=== PATIENT | female | born 1965 | race Caucasian/White ===

== ENCOUNTER 2018-01-10 13:20 | Observation (INO) | payer BC ==
[2018-01-10] MEDS ORDERED: IPRATROPIUM BROM 0.5MG/2.5ML ONE (13:55)
[2018-01-10] MEDS ORDERED: ALBUTEROL 2.5 MG/3 ML NEB SOL ONE (13:55)
[2018-01-10] MEDS ORDERED: DEXAMETHASONE 10 MG/ML VIAL ONE (13:56)
[2018-01-10 14:26] LABS: Absolute Lymphocytes (CBC) 0.8 K/uL (0.7-4.9); Absolute Monocytes 0.6 K/uL (0.1-1.3); Absolute Neutrophil 2.4 K/uL (1.8-8.0); Basophils % 0.6 % (0-1.3); Eosinophils % 0.9 % (0-4.4); Hematocrit 40.3 % (36.0-45.0); Lymphocytes % 21.7 % (15.3-44.8); MCH 28.8 pg (27.0-35.0); MCV 85.8 fL (80-100); MPV 10.4 fL (7.6-11.3); Monocytes % 15.1 % (3.3-12.3)
--- NOTE | 2018-01-10 14:33 | RAD REPORT ---
EXAM DESCRIPTION: RAD - Chest Single View - 01/10/2018 2:05 pm CLINICAL HISTORY: Cough, chest tightness COMPARISON: November 2012 TECHNIQUE: AP portable chest image was obtained 1400 hours . FINDINGS: Low lung volumes are noted. This accentuates interstitial markings. Focal consolidation, m ass or failure not suspected. Trachea is midline. Heart and vasculature are normal. No measurable ple ural effusion and no pneumothorax. No gross bony abnormality seen. No acute aortic findings suspected . IMPRESSION: Shallow inspiration chest film not significantly different from comparison. No acute fin ding confirmed.
[2018-01-10 14:45] LABS: Urine Blood 1+ (NEG); Urine Glucose NEGATIVE (NEG); Urine Protein 1+ (NEG); Urine Specific Gravity >1.030 (1.005-1.030)
--- NOTE | 2018-01-10 14:45 | EKG ---
Test Date: 2018-01-10 Test Time: 13:29:44 Chief Of Internal Medicine: FRANK MEASUREMENT RESULTS: Intervals: Rate: 84 VT: 140 QRSD: 88 QT: 360 QTc: 425 [place]: P: 28 VT: 140 QRS: 37 T: 23 INTERPRETIVE STATEMENTS: Normal sinus rhythm Normal ECG No previous ECG available for comparison Electronically Signed On 01-10-18 14:44:52 CDT by Abelino Cardoso
[2018-01-10 14:46] LABS: Albumin 3.4 g/dL (3.4-5.0); Bilirubin Total 0.3 mg/dL (0.2-1.0); Lipase 64 U/L (73-393); NT PRO-BNP 44 pg/mL (<125); Potassium 3.6 mmol/L (3.5-5.1); Protein, Total 7.5 g/dL (6.4-8.2)
--- NOTE | 2018-01-10 15:23 | RAD REPORT ---
EXAM DESCRIPTION: CT - Chest For Pe Angio - 01/10/2018 3:11 pm CLINICAL HISTORY: Shortness of breath, elevated D-dimer COMPARISON: January 10 chest film TECHNIQUE: Dynamically enhanced 3 mm thick images of the chest were obtained during administration o f approximately 150mL Isovue 370 IV contrast. Coronal and oblique reconstruction images were generate d and reviewed. Exam utilizes a protocol to evaluate the pulmonary arterial tree. All CT scans are performed using dose optimization technique as appropriate and may include automated exposure control or mA/KV adjustment according to patient size. FINDINGS: No pulmonary emboli are identified. The aorta as imaged shows no acute or suspicious finding. No pericardial thickening or effusion. No focal infiltrate, mass or consolidation. Interstitial markings are mildly prominent and could be a mild interstitial edema or infiltrate. No pleural effusion or pleural thickening. No mediastinal or hilar suspicious masses. No chest wall masses or abnormal axillary lymphadenopathy. No cardiomegaly or pericardial effusion. Bilateral breast implants are in place. There is calcificat ion of the implant capsules. IMPRESSION: No pulmonary emboli identified. Prominent interstitial markings from edema or infiltrate. No mass or consolidation of the parenchyma.
--- NOTE | 2018-01-10 15:32 | ER ---
Nurse's Notes [facility] Name: Pat John Age: 52 yrs Sex: Female : 1965 Arrival Date: 01/10/2018 Time: 13:23 Bed 28 Private MD: Hosea Moses Diagnosis: Chest pain, unspecified;Fever, unspecified;Hypoxemia;Weakness;Cough Presentation: 01/10 13:30 Presenting complaint: Patient states: Reports tightness across chest and cough since aj this AM. Patient reports that she just hasn't been feeling well for past 2 days. Reports coughing when attempting to take deep breath. NAD in triage. Transition of care: patient was not received from another setting of care. Onset of symptoms was January 10, 2018. Risk Assessment: Do you want to hurt yourself or someone else? Patient reports no desire to harm self or others. Initial Sepsis Screen: Does the patient meet any 2 criteria? No. Patient's initial sepsis screen is negative. Does the patient have a suspected source of infection? No. Patient's initial sepsis screen is negative. Care prior to arrival: None. 13:30 Method Of Arrival: Ambulatory 13:30 Acuity: GONZÁLEZ 3 Triage Assessment: 13:33 General: Appears in no apparent distress. comfortable, Behavior is calm, cooperative, aj appropriate for age. Pain: Denies pain. Neuro: Level of Consciousness is awake, alert, obeys commands, Oriented to person, place, time, situation, Appropriate for age. Cardiovascular: Reports shortness of breath, Capillary refill < 3 seconds in bilateral fingers Patient's skin is warm and dry. Respiratory: Reports shortness of breath cough that is Airway is patent Respiratory effort is even, unlabored, Respiratory pattern is regular, symmetrical. Derm: Skin is intact, is healthy with good turgor, Skin is pink, warm \\T\\ dry. normal. 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 - Social history:: Smoking status: Patient/guardian denies using tobacco. - Ebola Screening: : Patient negative for fever greater than or equal to 101.5 degrees Fahrenheit, and additional compatible Ebola Virus Disease symptoms Patient denies exposure to infectious person Patient denies travel to an Ebola-affected area in the 21 days before illness onset No symptoms or risks identified at this time. Screenin:50 Fall Risk None identified. kr2 14:20 Abuse screen: Denies threats or abuse. Denies injuries from another. Nutritional kr2 screening: No deficits noted. Tuberculosis screening: No symptoms or risk factors identified. Assessment: 13:50 Pain: Pain began gradually. kr2 13:50 General: Appears in no apparent distress. uncomfortable, well groomed, well developed, kr2 well nourished, Behavior is calm, cooperative, appropriate for age. Pain: Complains of pain in anterior aspect of right upper chest, anterior aspect of left upper chest and mid-sternal area Pain does not radiate. Pain currently is 4 out of 10 on a pain scale. at worst was 8 out of 10 on a pain scale. Quality of pain is described as "Tightness" Is continuous, Alleviated by sitting up Aggravated by lying flat. Neuro: Level of Consciousness is awake, alert, obeys commands, Oriented to person, place, time, situation. Cardiovascular: Capillary refill < 3 seconds in bilateral fingers Patient's skin is warm and dry. Rhythm is sinus rhythm. Respiratory: Airway is patent Respiratory effort is even, unlabored, Respiratory pattern is regular, symmetrical, Breath sounds are clear bilaterally. GI: Abdomen is non-distended, obese. : Urine is clear,kamini. EENT: Nares are clear bilaterally Oral mucosa is moist. Derm: Skin is intact, is healthy with good turgor, Skin is pink, warm \\T\\ dry. Musculoskeletal: Circulation, motion, and sensation intact. 14:50 Reassessment: Patient appears in no apparent distress at this time. Patient and/or kr2 family updated on plan of care and expected duration. Pain level reassessed. Patient is alert, oriented x 3, equal unlabored respirations, skin warm/dry/pink. 16:00 Reassessment: Patient ambulated around pod per MD instruction with pulse ox on, kr2 saturation dropped to 89% on room air, no shortness of breath. After return to bed and rest saturation up to 97%. 16:34 Reassessment: Discharge on hold at this time. kr2 17:35 Reassessment: Patient appears in no apparent distress at this time. Patient and/or kr2 family updated on plan of care and expected duration. Pain level reassessed. Patient is alert, oriented x 3, equal unlabored respirations, skin warm/dry/pink. Patient relaxed and laughing at this time, talking with friend at bedside. 17:38 Reassessment: Antibiotics on hold until second set of blood cultures drawn. kr2 18:22 Reassessment: Patient appears in no apparent distress at this time. Patient and/or kr2 family updated on plan of care and expected duration. Pain level reassessed. Patient is alert, oriented x 3, equal unlabored respirations, skin warm/dry/pink. Patient provided meal tray. Denies having any other needs at this time. 18:33 Reassessment: Patient appears in no apparent distress at this time. Patient and/or kr2 family updated on plan of care and expected duration. Pain level reassessed. Patient is alert, oriented x 3, equal unlabored respirations, skin warm/dry/pink. Patient states feeling better. 19:30 Reassessment: Patient appears in no apparent distress at this time. Patient and/or kr2 family updated on plan of care and expected duration. Pain level reassessed. Patient is alert, oriented x 3, equal unlabored respirations, skin warm/dry/pink. Patient states feeling better. 20:30 Reassessment: Patient appears in no apparent distress at this time. Patient and/or kr2 family updated on plan of care and expected duration. Pain level reassessed. Patient is alert, oriented x 3, equal unlabored respirations, skin warm/dry/pink. Patient states feeling better. Vital Signs: 13:33 BP 144 / 81; Pulse 94; Resp 19; Temp 99.2; Pulse Ox 97% on R/A; Weight 127.01 kg; aj Height 5 ft. 9 in. (175.26 cm); 14:33 BP 131 / 52; Pulse 103; Resp 23; Pulse Ox 95% on R/A; kr2 16:30 BP 161 / 87; Pulse 93; Resp 18; Pulse Ox 98% on R/A; kr2 17:36 BP 108 / 52; Pulse 89; Resp 17; Pulse Ox 98% on R/A; kr2 18:51 BP 142 / 81; Pulse 100; Resp 17; Temp 99.8(O); Pulse Ox 95% on 2 lpm NC; kr2 20:00 BP 136 / 78; Pulse 101; Resp 20; Temp 99.5(O); Pulse Ox 97% on 2 lpm NC; kr2 13:33 Body Mass Index 41.35 (127.01 kg, 175.26 cm) aj 14:33 post neb treatment kr2 Vitals: 14:33 Cardiac Rhythm Assessment Sinus tach. kr2 ED Course: 13:23 Patient arrived in ED. sb2 13:24 Hosea Moses MD is Private Physician. sb2 13:28 Fish Dixon MD is Attending Physician. ps1 13:31 Triage completed. aj 13:32 EKG done, by electrical instrumentation technician. reviewed by Fish Dixon MD. at1 13:33 Arm band placed on right wrist. Patient placed in an exam room. EKG completed in aj triage. Results shown to MD. 13:45 Marianne Dickens, RN is Primary Nurse. kr2 13:50 Patient has correct armband on for positive identification. Bed in low position. Call kr2 light in reach. Side rails up X 1. monitoring coordinator on. Pulse ox on. NIBP on. Door closed. Warm blanket given. Head of bed elevated. 13:55 Initial Neb Treatment Given as ordered Patient was instructed and evaluated on kr2 procedure. 14:02 X-ray completed. Portable x-ray completed in exam room. Patient tolerated procedure ml well. 14:05 XRAY CXR (1 view) In Process Unspecified. EDMS 14:05 Inserted saline lock: 20 gauge in left antecubital area, using aseptic technique. Blood kr2 collected. Patient maintains SpO2 saturation greater than 95% on room air. 14:05 Urine collected: clean catch specimen, clear, kamini colored. kr2 15:[address] via wheelchair. vm2 15:10 CT completed. Patient tolerated procedure well. Patient moved back from CT. vm2 15:11 CT Chest For PE Angio In Process Unspecified. EDMS 15:31 Hosea Moses MD is Referral Physician. ps1 16:39 Attending Physician role handed off by Fish Dixon MD adeel 16:39 Gianfranco Arambula MD is Attending Physician. adeel 16:46 Sheila Garcia MD is Hospitalizing Provider. adeel 21:00 No provider procedures requiring assistance completed. Patient admitted, IV remains in kr2 place. Administered Medications: 13:55 Drug: DuoNeb (3:1) (2.5 mg - 0.5 mg) 3 ml Route: Nebulizer; kr2 14:40 Follow up: Response: No adverse reaction kr2 14:00 Drug: Decadron 10 mg Route: PO; kr2 14:40 Follow up: Response: No adverse reaction kr2 16:46 CANCELLED (Duplicate Order): levofloxacin 500 mg 100 ml IVPB once over 60 mins adeel 17:06 Drug: Aspirin 162 mg Route: PO; kr2 19:17 Follow up: Response: No adverse reaction kr2 17:54 Drug: levofloxacin 750 mg Volume: 150 ml; Route: IVPB; Infused Over: 90 mins; Site: kr2 left antecubital; 19:17 Follow up: Response: No adverse reaction; IV Status: Completed infusion kr2 18:28 Drug: Lovenox 100 mg Route: Sub-Q; Site: right lower abdomen; kr2 19:17 Follow up: Response: No adverse reaction kr2 Outcome: 15:32 Discharge ordered by . ps1 16:49 Decision to Hospitalize by Provider. adeel 20:50 Admitted to Tele accompanied by tech, via wheelchair, room 418, with oxygen, with kr2 chart, Report called to Roxana 20:50 Condition: stable 20:50 Instructed on the need for admit, Demonstrated understanding of instructions. 21:01 Patient left the ED. kr2 Signatures: Dispatcher [employer] EDErica Sierra RN RN aj Anderson, Corey, MD MD cha Lopez, Melissa ml gonzales, Amanda, inker EKG Tat1 Nancy Mayanrd vm2 Marianne Dickens RN RN kr2 Fish Dixon MD MD ps1 Billeau, Sheri sb2 Corrections: (The following items were deleted from the chart) 14:33 14:21 Pain: Pain began kr2 kr2 16:37 14:33 Pulse 103bpm; Resp 23bpm; Pulse Ox 95% RA; post neb treatment; kr2 kr2 18:55 18:51 BP 142 / 81; Pulse 100bpm; Resp 17bpm; Pulse Ox 95% 2 lpm Nasal Cannula; kr2 kr2
--- NOTE | 2018-01-10 15:32 | EDPHYS ---
Physician Documentation [facility] Name: Pat John Age: 52 yrs Sex: Female : 1965 Arrival Date: 01/10/2018 Time: 13:23 Bed 28 Private MD: Hosea Moses ED Physician Gianfranco Arambula HPI: 01/10 13:36 This 52 yrs old Female presents to ER via Ambulatory with complaints of Chest ps1 Tightness, Breathing Difficulty. 13:36 onset was over a week ago. Intermittent fever and difficulty breathing with deep ps1 inspiration. States the pain feels like muscle strain and pain into the right shoulder. Pain rated as moderate. No DVT symptoms. . 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 - Social history:: Smoking status: Patient/guardian denies using tobacco. - Ebola Screening: : Patient negative for fever greater than or equal to 101.5 degrees Fahrenheit, and additional compatible Ebola Virus Disease symptoms Patient denies exposure to infectious person Patient denies travel to an Ebola-affected area in the 21 days before illness onset No symptoms or risks identified at this time. ROS: 13:36 Constitutional: Negative for fever, chills, and weight loss, Eyes: Negative for injury, ps1 pain, redness, and discharge, Cardiovascular: Negative for chest pain, palpitations, and edema, Abdomen/GI: Negative for abdominal pain, nausea, vomiting, diarrhea, and constipation, Back: Negative for injury and pain, MS/Extremity: Negative for injury and deformity, Skin: Negative for injury, rash, and discoloration, Neuro: Negative for headache, weakness, numbness, tingling, and seizure. 13:36 Respiratory: Positive for cough, pleurisy, shortness of breath. Exam: 13:36 Constitutional: This is a well developed, well nourished patient who is awake, alert, ps1 and in no acute distress. Head/Face: Normocephalic, atraumatic. Eyes: Pupils equal round and reactive to light, extra-ocular motions intact. Lids and lashes normal. Conjunctiva and sclera are non-icteric and not injected. Chest/axilla: Normal chest wall appearance and motion. Nontender with no deformity. No lesions are appreciated. Cardiovascular: Regular rate and rhythm. No gallops, murmurs, or rubs. Normal PMI, no JVD. No pulse deficits. Respiratory: Lungs have equal breath sounds bilaterally, clear to auscultation and percussion. No rales, rhonchi or wheezes noted. No increased work of breathing, no retractions or nasal flaring. Abdomen/GI: Soft, non-tender, with normal bowel sounds. No distension or tympany. No guarding or rebound. No evidence of tenderness throughout. Skin: Warm, dry with normal turgor. Normal color with no rashes, no lesions, and no evidence of cellulitis. MS/ Extremity: Pulses equal, no cyanosis. Neurovascular intact. Full, normal range of motion. Neuro: Awake and alert, GCS 15, oriented to person, place, time, and situation. Cranial nerves II-XII grossly intact. Sensory grossly intact. Vital Signs: 13:33 BP 144 / 81; Pulse 94; Resp 19; Temp 99.2; Pulse Ox 97% on R/A; Weight 127.01 kg; aj Height 5 ft. 9 in. (175.26 cm); 14:33 BP 131 / 52; Pulse 103; Resp 23; Pulse Ox 95% on R/A; kr2 16:30 BP 161 / 87; Pulse 93; Resp 18; Pulse Ox 98% on R/A; kr2 17:36 BP 108 / 52; Pulse 89; Resp 17; Pulse Ox 98% on R/A; kr2 18:51 BP 142 / 81; Pulse 100; Resp 17; Temp 99.8(O); Pulse Ox 95% on 2 lpm NC; kr2 20:00 BP 136 / 78; Pulse 101; Resp 20; Temp 99.5(O); Pulse Ox 97% on 2 lpm NC; kr2 13:33 Body Mass Index 41.35 (127.01 kg, 175.26 cm) aj 14:33 post neb treatment kr2 MDM: 14:48 Patient medically screened. [facility] 16:07 Data reviewed: vital signs, nurses notes, lab test result(s), EKG, radiologic studies, ps1 CT scan. ED course: bedside US of gallbladder performed. No pericholecystic fluid. No stones, or GB wall thickening. CBD wnl. No signs of GB disease. During examination patients family member was making statements concerning trust of my workup and her presenting symptoms. She additionally was seen by Dr. Alexa ZHENG and this was not verbalized to me previously. She now has multiple complaints that were not addressed previously. I had patient perform an ambulatory biox and her sat dropped to 89 and was 97 while sitting. I will have Dr. Arambula speak with patient and give a second opinion and POC. . 01/10 13:41 Order name: CBC with Diff; Complete Time: 14:37 [facility] 01/10 13:41 Order name: D-Dimer; Complete Time: 14:37 [facility] 01/10 13:41 Order name: Lipase; Complete Time: 14:55 [facility] 01/10 13:41 Order name: NT PRO-BNP; Complete Time: 14:55 [facility] 01/10 13:41 Order name: Troponin (emerg Dept Use Only); Complete Time: 14:55 [facility] 01/10 13:45 Order name: CMP; Complete Time: 14:55 [facility] 01/10 14:16 Order name: Urine Dipstick--Ancillary (enter results); Complete Time: 14:55 01/10 16:45 Order name: Blood Culture Adult (2) [facility] 01/10 17:02 Order name: Basic Metabolic Panel [facility] 01/10 17:02 Order name: Basic Metabolic Panel [facility] 01/10 17:02 Order name: CBC with Automated Diff [facility] 01/10 17:02 Order name: CBC with Automated Diff [facility] 01/10 17:02 Order name: Lipid Profile [facility] 01/10 17:02 Order name: Lipid Profile [facility] 01/10 13:41 Order name: XRAY CXR (1 view); Complete Time: 14:37 [facility] 01/10 13:41 Order name: EKG; Complete Time: 13:41 [facility] 01/10 13:41 Order name: Cardiac monitoring; Complete Time: 13:49 [facility] 01/10 14:38 Order name: CT Chest For PE Angio; Complete Time: 15:30 [facility] 01/10 17:02 Order name: Heart Healthy [facility] 01/10 17:02 Order name: Troponin I [facility] 01/10 17:02 Order name: Troponin I [facility] 01/10 17:02 Order name: Troponin I [facility] 01/10 17:02 Order name: Sputum Culture [facility] 01/10 17:09 Order name: Diet Heart Healthy; Complete Time: 17:09 kr2 01/10 13:41 Order name: EKG - Nurse/Tech; Complete Time: 13:49 ps1 01/10 13:41 Order name: IV Saline Lock; Complete Time: 14:18 ps1 01/10 13:41 Order name: Labs collected and sent; Complete Time: 14:18 ps1 01/10 13:41 Order name: O2 Per Protocol; Complete Time: 13:49 ps1 01/10 13:41 Order name: O2 Sat Monitoring; Complete Time: 13:49 ps1 01/10 13:41 Order name: Urine Dipstick-Ancillary (obtain specimen); Complete Time: 14:18 ps1 Administered Medications: 13:55 Drug: DuoNeb (3:1) (2.5 mg - 0.5 mg) 3 ml Route: Nebulizer; kr2 14:40 Follow up: Response: No adverse reaction kr2 14:00 Drug: Decadron 10 mg Route: PO; kr2 14:40 Follow up: Response: No adverse reaction kr2 16:46 CANCELLED (Duplicate Order): levofloxacin 500 mg 100 ml IVPB once over 60 mins adeel 17:06 Drug: Aspirin 162 mg Route: PO; kr2 19:17 Follow up: Response: No adverse reaction kr2 17:54 Drug: levofloxacin 750 mg Volume: 150 ml; Route: IVPB; Infused Over: 90 mins; Site: kr2 left antecubital; 19:17 Follow up: Response: No adverse reaction; IV Status: Completed infusion kr2 18:28 Drug: Lovenox 100 mg Route: Sub-Q; Site: right lower abdomen; kr2 19:17 Follow up: Response: No adverse reaction kr2 Disposition: 01/10/18 16:49 Hospitalization ordered by Sheila Garcia for Observation. Preliminary diagnosis are Chest pain, unspecified, Fever, unspecified, Hypoxemia, Weakness, Cough. - Bed requested for Telemetry/MedSurg (observation). - Status is Observation. kr2 - Condition is Stable. - Problem is new. - Symptoms have improved. UTI on Admission? No Signatures: Dispatcher [employer] EDMS Jacy Ziegler Erica Davis RN Gianfranco Damian MD MD cha Reaves, Karey, RN RN kr2 Fish Dixon MD MD ps1 Corrections: (The following items were deleted from the chart) 16:46 16:45 levofloxacin 500 mg 100 ml IVPB once over 60 mins ordered. [facility] 16:46 15:32 01/10/2018 15:32 Discharged to Home. Impression: Acute upper respiratory adeel infection, unspecified. Condition is Stable. Forms are Medication Reconciliation Form, Thank You Letter, Antibiotic Education, Prescription Opioid Use. Follow up: Hosea Moses; When: As needed; Reason: Recheck today's complaints, Continuance of care, Re-evaluation by your physician. Follow up: Emergency Department; When: As needed; Reason: Fever > 102 F, Trouble breathing, Worsening of condition. Problem is new. Symptoms have improved. ps1 18:42 16:49 Hospitalization Ordered by Sheila Garcia MD for Observation. Preliminary diagnosis bd is Chest pain, unspecified; Fever, unspecified; Hypoxemia; Weakness; Cough. Bed requested for Telemetry/MedSurg (observation). Status is Observation. Condition is Stable. Problem is new. Symptoms have improved. UTI on Admission? No. adeel 21:01 18:42 01/10/2018 16:49 Hospitalization Ordered by Sheila Garcia MD for Observation. kr2 Preliminary diagnosis is Chest pain, unspecified; Fever, unspecified; Hypoxemia; Weakness; Cough. Bed requested for Telemetry/MedSurg (observation). Status is Observation. Condition is Stable. Problem is new. Symptoms have improved. UTI on Admission? No. bd
[2018-01-10] MEDS ORDERED: ONDANSETRON 4 MG/2 ML VIAL IV PRN (16:58)
[2018-01-10] MEDS ORDERED: ACETAMINOPHEN 500 MG TAB PO PRN (16:58)
[2018-01-10] MEDS ORDERED: ALBUTEROL 2.5 MG/3 ML NEB SOL NEB PRN (16:58)
[2018-01-10] MEDS ORDERED: ASPIRIN 81 MG CHEWABLE TABLET ONE (17:05)
[2018-01-10] MEDS: ENOXAPARIN 40 MG/0.4 ML SQ SCH (18:00)
[2018-01-10] MEDS ORDERED: Levofloxacin 750mg IV 750 MG/150 ML BAG IV SCH (18:00)
[2018-01-10] MEDS ORDERED: ENOXAPARIN 100 MG/ML SYR SQ ONE (18:28)
[2018-01-10] MEDS: IPRATROPIUM BROM 0.5MG/2.5ML NEB SCH (21:37)
[2018-01-11] MEDS: IPRATROPIUM BROM 0.5MG/2.5ML NEB SCH ×3 (02:22→13:42)
[2018-01-11 05:59] LABS: Absolute Lymphocytes (CBC) 0.6 K/uL (0.7-4.9); Absolute Monocytes 0.4 K/uL (0.1-1.3); Absolute Neutrophil 1.7 K/uL (1.8-8.0); Basophils % 0.2 % (0-1.3); Hematocrit 37.6 % (36.0-45.0); Lymphocytes % 21.2 % (15.3-44.8); MCH 28.8 pg (27.0-35.0); MCV 84.4 fL (80-100); MPV 10.2 fL (7.6-11.3); Monocytes % 14.5 % (3.3-12.3); RBC Red Blood Cell Count 4.46 M/uL (3.86-4.86)
[2018-01-11 06:12] LABS: Potassium 3.8 mmol/L (3.5-5.1)
[2018-01-11] MEDS ORDERED: POTASSIUM 25 MEQ EFFERV TAB PO ONE (06:24)
[2018-01-11 07:25] LABS: Blood Morphology Comment NOT SEEN (NOT SEEN); Platelet Estimate ADEQ; Urine White Blood Cell Casts OK
[2018-01-11] MEDS ORDERED: REGADENOSON 0.4 MG/5 ML SYR IV ONE (08:13)
[2018-01-11] MEDS: ENOXAPARIN 40 MG/0.4 ML SQ SCH (08:40)
--- NOTE | 2018-01-11 09:14 | P.HP ---
Certification for Inpatient Patient admitted to: Observation With expected LOS: <2 Midnights Patient will require the following post-hospital care: None Practitioner: I am a practitioner with admitting privileges, knowledge of patient current condition, hospital course, and medical plan of care. Services: Services provided to patient in accordance with Admission requirements found in Title 42 Section 412.3 of the Code of Federal Regulations Patient History Date of Service: 01/10/18 Reason for admission: Chest pain rule out acute coronary syndrome History of Present Illness: Patient 52-year-old female came into the hospital with chest discomfort. Patient states she has been having some pain since she has had upper respiratory symptoms. She has also had quite a bit of stress in her life. She believes this is what led to some of her symptoms. The pain was mainly in the sternal region. She felt like she has some shortness of breath. She thought about her symptoms for the last couple days and finally decided to come into the emergency room because she stays She did not have time to . Patient's EKGs and been unremarkable. Patient's serial troponins have been negative. Patient will be admitted to the hospital for evaluation. Patient has been having some upper respiratory symptoms as well and could have symptoms because of coughing-will work her up for further evaluation Allergies azithromycin Allergy (Mild, Verified 01/10/18 22:24) Hives Home Medications: Dextroamphetamine/Amphetamine [Mydayis ER 25 mg Capsule] 25 mg PO DAILY Duloxetine HCl 60 mg PO DAILY 01/10/18 Levocetirizine Dihydrochloride [Xyzal] 5 mg PO DAILY 01/10/18 Levothyroxine [Synthroid*] 125 mcg PO DAILY 01/10/18 Rosuvastatin Calcium [Crestor] 20 mg PO DAILY 01/10/18 Valsartan/Hydrochlorothiazide [Valsartan-Hctz 160-12.5 mg Tab] 1 tab PO DAILY - Past Medical/Surgical History Has patient received pneumonia vaccine in the past: No Diabetic: No -: HTN -: hypothyroid -: hyperlipidemia -: anxiety -: total hyhsterectomy -: breast augmentation - Family History Father Medical History: Hypertension Sister Medical History: Heart disease - Social History Smoking Status: Never smoker Alcohol use: Yes CD- Drugs: No Caffeine use: Yes Place of Residence: Home Review of Systems 10-point ROS is otherwise unremarkable Physical Examination - Vital Signs Temperature: 97.9 F Blood Pressure: 150/82 Pulse: 76 Respirations: 18 Pulse Ox (%): 94 - Physical Exam General: Alert, In no apparent distress, Oriented x3 HEENT: Atraumatic, PERRLA, Mucous membr. moist/pink, EOMI, Sclerae nonicteric Neck: Supple, 2+ carotid pulse no bruit, No LAD, Without JVD or thyroid abnormality Respiratory: Clear to auscultation bilaterally, Normal air movement Cardiovascular: Regular rate/rhythm, Normal S1 S2, No murmurs Gastrointestinal: Normal bowel sounds, Soft and benign, Non-distended, No tenderness Musculoskeletal: No clubbing, No swelling, No tenderness Integumentary: No rashes Neurological: Normal gait, Normal speech, Normal strength at 5/5 x4 extr, Normal tone, Sensation intact, Cranial nerves 3-12 intact, Normal affect Lymphatics: No axilla or inguinal lymphadenopathy - Studies Laboratory Data (last 24 hrs) 01/10/18 14:05: Sodium 143, Potassium 3.6, BUN 11, Creatinine 0.80, Glucose 90, Total Bilirubin 0.3, AST 32, ALT 47, Alkaline Phosphatase 90 01/10/18 14:05: WBC 3.9 L, Hgb 13.5, Hct 40.3, Plt Count 216 01/10/18 14:05: Lipase 64 L Assessment & Plan - Problems (Diagnosis) (1) Upper respiratory infection Current Visit: Yes Status: Acute (2) Psychogenic pain Current Visit: Yes Status: Acute (3) Chest pain Onset Date: 01/11/18 Current Visit: Yes Status: Acute - Plan 1. Serial troponins and EKG 2. Cardiology consultation 3. Echocardiogram and possible stress test if cardiology is agreeable 4. Anti-platelet therapy, anti coagulation, beta-larry, statin, and O2 as needed 5. IV morphine for pain 6. Nitro p.r.n. Discharge Plan: Home Plan to discharge in: 24 Hours - Advance Directives Does patient have a Living Will: No Does patient have a Durable POA for Healthcare: No - Code Status/Comfort Care Code Status Assessed: Yes Code Status: Full Code Critical Care: No Time Spent Managing PTS Care (In Minutes): 50
[2018-01-11] MEDS ORDERED: COLCHICINE 0.6 MG TAB PO PRN (09:29)
--- NOTE | 2018-01-11 10:35 | ECHO ---
HEIGHT: 5 ft 9 in WEIGHT: 281 lb 14.4 oz DATE OF STUDY: 01/11/[address]: Everett Lizarraga MD 2-DIMENSIONAL: YES M.MODE: YES DOPPLER: YES COLOR FLOW: YES TDS: YES PORTABLE: NO DEFINITY: NO BUBBLE STUDY: NO DIAGNOSIS: CHEST PAIN/RULE OUT ACUTE CORONARY SYNDROME CARDIAC HISTORY: CATHERIZATION: NO SURGERY: NO PROSTHETIC VALVE: NO PACEMAKER: NO MEASUREMENTS (cm) DIASTOLIC (NORMALS) SYSTOLIC (NORMALS) IVSd 0.9 (0.6-1.2) LA Diam 3.8 (1.9-4.0) LVEF 62% LVIDd 4.2 (3.5-5.7) LVIDs 2.8 (2.0-3.5) %FS 33% LVPWd 1.1 (0.6-1.2) Ao Diam 2.36 (2.0-3.7) 2 DIMENSIONAL ASSESSMENT: RIGHT ATRIUM: NORAML LEFT ATRIUM: NORMAL RIGHT VENTRICLE: NORMAL LEFT VENTRICLE: NORMAL TRICUSPID VALVE: NORMAL MITRAL VALVE: NORMAL PULMONIC VALVE: NORMAL AORTIC VALVE: NORMAL PERICARDIAL EFFUSION: NONE AORTIC ROOT: NORMAL LEFT VENTRICULAR WALL MOTION: NORMAL. DOPPLER/COLOR FLOW: NORMAL. COMMENTS: NORMAL 2D ECHO WITH DOPPLER. TECHNOLOGIST: REGGIE RÍOS
[2018-01-11] MEDS ORDERED: ALPRAZOLAM 0.25 MG TABLET PO PRN (10:44)
[2018-01-11] MEDS ORDERED: METHOCARBAMOL 750 MG TAB PO PRN (13:00)
--- NOTE | 2018-01-11 13:15 | RAD REPORT ---
EXAM DESCRIPTION: NM - Rest Stress Cardiac Imaging - 01/11/2018 1:07 pm CLINICAL HISTORY: Chest pain. COMPARISON: None. TECHNIQUE: The patient was administered approximately 10mCi of Tc 99m Sestamibi prior to resting SPE CT imaging of the heart. The patient was then administered approximately 30 mCi of Tc 99m Sestamibi f ollowing exercise or pharmacologic stress. Multiplanar SPECT images were reviewed. FINDINGS: There is uniformity of radiotracer uptake involving the entire left ventricular myocardium on rest and stress images. The left ventricular ejection fraction equals 72% IMPRESSION: Negative for a myocardial perfusion defect
--- NOTE | 2018-01-11 13:36 | CON ---
Chief Complaint: Body hurting everywhere including the chest. History Of Present Illness: The patient has been under some emotional distress. She was not willing to give details. She said she took a trip to the crazy place, I do not know exactly what that means . There was no suicide attempt or trauma. She came to the hospital when she was hurting all over he r body. She admits to having some fever recently. Temperature is around 100-100.5 recorded by her. Her highest temperature since being here is 99.2. She says the pain is a little bit everywhere, but when she takes a deep breath, she immediately starts coughing, kind of catches. Since she has been here, she has had electrocardiograms that looked completely normal. The CT angiogram of the chest is negative for pulmonary embolus. There are prominent interstitial markings. No pleural effusion or thickening. The chest x-ray is within normal limits with a shallow inspiration film. Laboratory Data: Shows a rather low white blood cell count. Absolute neutrophil count is quite low. Normal lipid panel. Her troponins are normal, except for one is 0.09. Two others before that were normal. One blood sugar was slightly elevated at 125. D-dimer level was high. Urine shows blood a nd protein. It is negative for nitrite. Past Medical History: Negative for diabetes. It is positive for depression, hypothyroidism, dyslipi demia, anxiety. Outpatient Medications,: Valsartan, hydrochlorothiazide, Crestor, levothyroxine, Duloxetine, dextroa mphetamine, amphetamine, Mydayis capsule, . Allergies: SHE IS ALLERGIC TO AZITHROMYCIN. Social History: She uses no tobacco, no alcohol, no illegal drugs. Physical Examination: Vital Signs: 5 feet 9 inches, 281 pounds, obese. She has slight malar rash, not really rash but red ness. Lungs: Clear. Heart: Within normal limits. No carotid bruit. Distal pulses normal. Extremities: There is trace edema. Whenever she takes a deep pressure, she coughs immediately. I do not hear a friction rub, pleural or pericardial. Impression: The patient probably has some kind of serositis, pleurisy, pericarditis or both, althoug h the physical findings and EKG findings are not there. We will do an echocardiogram, pharmacologic stress test. I think she should have a workup to see if she has an inflammatory condition such as moise pus, at least get a sed rate, RACHELLE, and we will treat her with colchicine to see if that helps. If he r stress test shows signs of ischemia, we will talk about doing a cardiac cath. HASEEB Voice ID: [id number] Report ID: [id number]
--- NOTE | 2018-01-11 14:29 | TREADPHA ---
DX: CHEST PAIN Date of Study: 01/11/2018 Ht: 5 9 Wt: 281 lb 14.4 oz Consulting Physician: LORETA MEDICATIONS: TYLENOL, LOVENOX, PROVENTIL, LEVAQUIN, ZOFRAN HISTORY: 52 YEAR OLD FEMALE HERE WITH COMPLAINTS OF CHEST PAIN. HISTORY OF HYPERTENSION, ANXIETY, ADD AND HYPOTHYROID. PHYSICIAL EXAMINATION: RESTING B.P.: 119/64 RESTING H.R.: 63 RESTING EKG: NORMAL PROTOCOL: LEXISCAN EXERCISE TIME: 3:30 B.P. AT PEAK STRESS: 133/76 IMPRESSION: LEXISCAN INJECTED. CARDIOLITE INJECTED PER PROTOCOL. SEE NUCLEAR MEDICINE REPORT. NO CHEST PAIN. NO VENTRICULAR TACHYCARDIA OR SUPRAVENTRICULAR TACHYCARDIA NOTED. NON DIAGNOSTIC EKG WITH LEXISCAN STRESS TEST.
--- NOTE | 2018-01-11 17:12 | DS ---
Date of Discharge: 01/11/2018 Consultants: Dr. Cornelius with Cardiology. Procedures: Pharmacological stress test on 01/11/2018, no stress-induced ischemia. Admitting Diagnoses: 1.Chest pain, rule out acute coronary syndrome. 2.Psychogenic pain. 3.Upper respiratory infection. 4.Morbid obesity. 5.Hypertension. 6.Hypothyroid. Discharge Diagnoses: 1.Chest pain, acute coronary syndrome ruled out. 2.Psychogenic pain. 3.Generalized anxiety disorder, improved. 4.Hyperlipidemia, mixed. Continue statin. 5.Hypothyroidism. Continue Synthroid. 6.Essential hypertension, stable. Hospital Course: The patient is a 52-year-old female, comes in with chest discomfort. The patient d oes report some generalized anxiety ongoing for the past several days at work and at home. The patie nt's workup for ACS was negative; however, she did have some troponin elevation of 0.09. The patient 's cholesterol panel was normal. She did have a stress test done by Dr. Cornelius, which was negative f or any stress-induced ischemia. She did have elevated D-dimer and CT scan of the chest with contrast was done, which showed no acute PE. The patient also had echocardiogram done, which showed EF of 62 % and normal echocardiogram. The patient was then cleared for discharge from clinical application consultant's standpoint . She was screened for systemic lupus erythematosus. She does have the malar rash. The patient was started on colchicine p.r.n. for her symptoms, possible pericarditis or serositis. Followup: The patient to followup with her primary care physician, Dr. Hosea Moses to follow up wit h the RACHELLE screen. Return to ER for worsening condition. Follow up with lactation coordinator, Dr. Cornelius in 4 weeks. Diet: Heart healthy. Activity: As tolerated. Medications: As per medication reconciliation list. Physical Examination: General: Awake, alert, oriented, no acute distress. CV: S1, S2. No murmurs. Respiratory: Moving air well bilaterally. Abdomen: Soft, nontender, nondistended. Positive bowel sounds. Extremities: No clubbing, cyanosis, edema. Neurologic: Nonfocal. SA/MODL Voice ID: [id number] Report ID: [id number]
[2018-01-11] MEDS ORDERED: ROSUVASTATIN 10 MG TAB PO SCH (21:00)
[2018-01-12] MEDS ORDERED: LEVOTHYROXINE SOD 0.125 MG TAB PO SCH (06:30)
[2018-01-12] MEDS ORDERED: HYDROCHLOROTHIAZIDE PO SCH (09:00)
[2018-01-12] MEDS ORDERED: DEXTROAMPHETAMINE PO SCH (09:00)
[2018-01-12] MEDS ORDERED: [UNRECOGNIZED DRUG - OTHER] PO SCH (09:00)
[2018-01-12] MEDS ORDERED: VALSARTAN 80 MG TAB PO SCH (09:00)
[2018-01-12] MEDS ORDERED: CETIRIZINE HCL 5 MG TABLET PO SCH (09:00)
[2018-01-12] MEDS ORDERED: VALSARTAN PO SCH (09:00)
[2018-01-12] MEDS ORDERED: DULOXETINE 30 MG CAP PO SCH (09:00)
[2018-01-12] MEDS ORDERED: AMPHETAMINE PO SCH (09:00)
[2018-01-12] MEDS ORDERED: hydroCHLOROthiazide 12.5 MG CAP PO SCH (09:00)
== END 2018-01-11 16:47 | disposition home or self-care (01) ==
LOC: ER 13:20 → ERHOLD 16:52 → 4TH 20:30
PROVIDERS: ADMIT Family Medicine; ATTEND Family Medicine
DX: R07.9 Chest pain, unspecified (principal); F45.41 Pain disorder exclusively related to psychological factors; F41.1 Generalized anxiety disorder; E78.2 Mixed hyperlipidemia; E03.9 Hypothyroidism, unspecified; I10 Essential (primary) hypertension; R74.8 Abnormal levels of other serum enzymes; R21 Rash and other nonspecific skin eruption; E66.9 Obesity, unspecified; Z88.1 Allergy status to other antibiotic agents; J06.9 Acute upper respiratory infection, unspecified; Z68.41 Body mass index [BMI] 40.0-44.9, adult
CPT/HCPCS: 36415; 71045; 71275; 78452; 80048; 80053; 80061; 81003; 83690; 83735; 83880; 84484; 85025; 85379; 85652; 86038; 87040; 93005; 93017; 93306; 94640; 94760; 96365; 96372; 99285; A9500; G0378; J1100; J1650; J2785; Q9967

== ENCOUNTER 2022-08-15 21:42 | Emergency (ER) | payer BC ==
--- OUTSIDE RECORDS SUMMARY | 2022-08-15 21:44 | XMS REPORT | Continuity of Care Document ---
:1965 Author Organization [facility] t Address [address] [facility] [address] [place] [address] Care Team Providers Name Role Phone Chuck Liu Attending Clinician Unavailable Problems This patient has no known problems. Allergies, Adverse Reactions, Alerts This patient has no known allergies or adverse reactions. Medications This patient has no known medications. Procedures This patient has no known procedures. Encounters Start End Encounter Admission Attending Care Care Encounter Source Date/Time Date/Time Type Type Clinicians Facility Department ID 2022-06-01 Outpatient Alexa, [facility] [id number] 2 Common 11:57:02 [facility] 2022-05-31 [facility] [id number] 2 Common 13:55:04 [facility] 2022-03-01 Outpatient Alexa, [facility] [id number] 2 Common 15:04:03 [facility] 2021-12-01 Out[facility] [id number] 2 Common 12:10:03 [facility] 2021-11-17 Outpatient Alexa, [facility] [id number] 2 Common 13:55:04 [facility] Results This patient has no known results.
[2022-08-15] MEDS ORDERED: IBUPROFEN 400 MG TAB ONE (22:32)
[2022-08-15] MEDS ORDERED: HYDROCODONE/APAP 7.5/325 MG TAB ONE (22:33)
[2022-08-16] MEDS ORDERED: KETOROLAC 30 MG/ML INJ ONE (00:55)
[2022-08-16] MEDS ORDERED: MORPHINE 4 MG/ML SYR ONE (00:55)
--- NOTE | 2022-08-16 00:56 | ER ---
Nurse's Notes [facility] Name: Pat John Age: 56 yrs Sex: Female : 1965 Arrival Date: 08/15/2022 Time: 21:45 Bed 17 Private MD: Diagnosis: Pain in left lower leg Presentation: 08/15 22:09 Coronavirus screen: At this time, the client does not indicate any symptoms associated as6 with coronavirus-19. Ebola Screen: No symptoms or risks identified at this time. Initial Sepsis Screen: Does the patient meet any 2 criteria? No. Patient's initial sepsis screen is negative. Does the patient have a suspected source of infection? No. Patient's initial sepsis screen is negative. Risk Assessment: Do you want to hurt yourself or someone else? Patient reports no desire to harm self or others. Onset of symptoms was August 12, 2022. 22:09 Acuity: GONZÁLEZ 3 as6 22:09 Method Of Arrival: Wheelchair as6 08/16 01:30 Chief complaint: Patient states: Left leg pain. ke1 Triage Assessment: 03 22:15 General: Appears in no apparent distress. Behavior is calm, cooperative. Pain: as6 Complains of pain in left leg. 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 - Social history:: Smoking status: Patient denies any tobacco usage or history of. Screenin:10 [facility] ED Fall Risk Assessment (Adult) History of falling in the last 3 months, ke1 including since admission No falls in past 3 months (0 pts) Confusion or Disorientation No (0 pts) Intoxicated or Sedated No (0 pts) Impaired Gait No (0 pts) Mobility Assist Device Used No (0 pt) Altered Elimination No (0 pt) Score/Fall Risk Level 0 - 2 = Low Risk. Abuse screen: Denies threats or abuse. Nutritional screening: No deficits noted. Tuberculosis screening: No symptoms or risk factors identified. Vital Signs: 22:09 BP 112 / 60; Pulse 63; Resp 18 S; Temp 98.3(O); Pulse Ox 96% on R/A; Weight 122.47 kg as6 (R); Height 5 ft. 9 in. (175.26 cm) (R); Pain 6/10; 22:09 Body Mass Index 39.87 (122.47 kg, 175.26 cm) as6 ED Course: 21:45 Patient arrived in ED. jj6 21:54 [facility]oud [facility] cp 21:54 Jacinto Up MD is Attending Physician. cp 22:14 Triage completed. as6 22:15 Arm band placed on. as6 22:20 Bed in low position. Call light in reach. ke1 23:28 Kleber Kasper, MAXINE is Primary Nurse. ke1 08/16 01:28 No provider procedures requiring assistance completed. ke1 01:29 Patient did not have IV access during this emergency room visit. ke1 Administered Medications: 08/15 22:31 Drug: Ibuprofen 800 mg Route: PO; as6 23:30 Follow up: Response: Pain is decreased ke1 22:31 Drug: Hydrocodone-Acetaminophen (7.5 mg-325 mg) 1 tabs Route: PO; as6 23:30 Follow up: Response: Pain is decreased ke1 03 01:20 Drug: Ketorolac 30 mg Route: IM; Site: right deltoid; ke1 01:20 Follow up: Response: Medication administered at discharge. ke1 01:20 Drug: morphine 4 mg Route: IM; Site: right deltoid; ke1 01:20 Follow up: Response: Medication administered at discharge. ke1 Medication: 01:29 VIS not applicable for this client. ke1 Outcome: 00:56 Discharge ordered by . cp 01:29 Discharged to home via wheelchair. ke1 01:29 Condition: good 01:29 Discharge instructions given to patient. 01:31 Patient left the ED. ke1 Signatures: Gianfranco Stroud PA PA cp Jeffries, Jennifer jj6 Ortega Stein RN RN as6 Kleber Kasper RN RN ke1
--- NOTE | 2022-08-16 00:56 | EDPHYS ---
Physician Documentation [facility] Name: Pat John Age: 56 yrs Sex: Female : 1965 Arrival Date: 08/15/2022 Time: 21:45 Bed 17 Private MD: ED Physician Jacinto Up HPI: 08/15 22:35 This 56 yrs old Female presents to ER via Wheelchair with complaints of Swelling of cp Lower Extremity, Leg Pain. 22:35 The patient presents with pain, that is acute. 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 - Social history:: Smoking status: Patient denies any tobacco usage or history of. ROS: 22:40 MS/extremity: Positive for pain, tenderness, of the left leg. cp Vital Signs: 22:09 BP 112 / 60; Pulse 63; Resp 18 S; Temp 98.3(O); Pulse Ox 96% on R/A; Weight 122.47 kg as6 (R); Height 5 ft. 9 in. (175.26 cm) (R); Pain 6/10; 22:09 Body Mass Index 39.87 (122.47 kg, 175.26 cm) as6 MDM: 22:16 Patient medically screened. cp 08/15 22:26 Order name: Extremity Venous Unilateral Ltd cp 08/16 00:20 Order name: LE Artery Uni Ltd cp Administered Medications: 22:31 Drug: Ibuprofen 800 mg Route: PO; as6 23:30 Follow up: Response: Pain is decreased ke1 22:31 Drug: Hydrocodone-Acetaminophen (7.5 mg-325 mg) 1 tabs Route: PO; as6 23:30 Follow up: Response: Pain is decreased ke1 08/16 01:20 Drug: Ketorolac 30 mg Route: IM; Site: right deltoid; ke1 01:20 Follow up: Response: Medication administered at discharge. ke1 01:20 Drug: morphine 4 mg Route: IM; Site: right deltoid; ke1 01:20 Follow up: Response: Medication administered at discharge. ke1 Disposition Summary: 08/16/22 00:56 Discharge Ordered Location: Home cp Problem: new cp Symptoms: have improved cp Condition: Stable cp Diagnosis - Pain in left lower leg cp Followup: cp - With: Private Physician - When: 2 - 3 days - Reason: Recheck today's complaints Discharge Instructions: - Discharge Summary Sheet cp - Musculoskeletal Pain cp - Heat Therapy cp Forms: - Medication Reconciliation Form cp - Thank You Letter cp - Antibiotic Education cp - Prescription Opioid Use cp Prescriptions: - Zanaflex 4 mg Oral Tablet - take 1 tablet by ORAL route every 8 hours As needed; 20 tablet; Refills: 0, cp Product Selection Permitted - Diclofenac Sodium 75 mg Oral Tablet Sustained Release - take 1 tablet by ORAL route 2 times per day; 30 tablet; Refills: 0, Product cp Selection Permitted Signatures: Dispatcher [employer] EDGianfranco Santoro PA PA cp Slawson, Ashby, RN RN as6 Kleber Kasper RN RN ke1
--- NOTE | 2022-08-16 13:33 | RAD REPORT ---
EXAM DESCRIPTION: US - Extremity Venous Uni Ltd - 08/15/2022 10:54 pm CLINICAL HISTORY: 56 years Female PAIN TECHNIQUE: Real-time Duplex ultrasound of the left lower extremity veins with 2-D kearney scale, color Doppler flow, and spectral waveform analysis. COMPARISON: No prior exams provided for comparison. FINDINGS: No DVT. The visualized common femoral, femoral, popliteal, posterior tibial veins are pa tent without thrombus. Normal compressibility, augmentation response, and Doppler waveforms. The left greater saphenous vein is patent without thrombus. No visualized popliteal cyst. IMPRESSION: No left lower extremity DVT. Electronically signed by: Catalina Conn MD 08/15/2022 11:32 PM CHEF DE CUISINE Due to temporary technical issues with the PACS/Fluency reporting system, reports are being signed by the in house radiologists without review as a courtesy to insure prompt reporting. The interpreting radiologist is fully responsible for the content of the report.
--- NOTE | 2022-08-16 13:38 | RAD REPORT ---
EXAM DESCRIPTION: US - Lower Extremity Artery Uni Ltd - 08/16/2022 12:44 am CLINICAL HISTORY: [facility] MAIN PAIN TECHNIQUE: Multiple grayscale, color, and spectral Doppler images of the left lower extremity arteri es. FINDINGS: Left: The common femoral, superficial femoral, popliteal, posterior tibial, peroneal, ante rior tibial, and dorsalis pedis arteries demonstrate normal triphasic waveforms. Velocities range fro m 13 - 80 cm/s. No significant atherosclerotic plaque. IMPRESSION: No significant stenoses. Electronically signed by: Von Sosa MD 08/16/2022 1:40 AM INTERNATIONAL STUDENT ADVISOR Due to temporary technical issues with the PACS/Fluency reporting system, reports are being signed by the in house radiologists without review as a courtesy to insure prompt reporting. The interpreting radiologist is fully responsible for the content of the report.
== END 2022-08-16 01:31 | disposition home or self-care (01) ==
LOC: ER 21:42
DX: M79.662 Pain in left lower leg (principal); Z88.1 Allergy status to other antibiotic agents
CPT/HCPCS: 93926; 93971; 96372; 99283